=== PATIENT | male | born 1985 | race Caucasian/White ===

== ENCOUNTER 2019-06-22 10:07 | Emergency (ER) | payer OTHER ==
[~2019-06-22] VITALS: Ht 170.2 cm; Wt 70.3 kg
[2019-06-22] MEDS ORDERED: CIPRO500 MG PO (15:58)
[2019-06-22] MEDS ORDERED: KETO10TA2 PO (15:58)
== END 2019-06-22 16:43 | disposition home or self-care (01) ==
LOC: ER 10:07
DX: N20.1 Calculus of ureter (principal)